=== PATIENT | female | born 1960 | race African-American/Black ===

== ENCOUNTER → 2019-09-19 | Outpatient (CLI) | payer OTHER ==
--- NOTE | 2019-09-19 16:00 | KCIC ---
EXAM: Lumbar spine MRI without contrast. HISTORY: Back pain. Radiculopathy. TECHNIQUE: Multiplanar, multisequence magnetic resonance imaging of the lumbar spine was performed without contrast. COMPARISON: None. FINDINGS: There is mild lumbar dextroscoliosis. There is minimal grade 1 anterolisthesis of L4 and L5, measuring 3 mm. There is no suspicious osseous lesion. There are few tiny osseous hemangiomas. There is no fracture. There is edema within the right L5 pedicle and bilateral L4 pedicles, likely degenerative or due to a stress reaction. The conus terminates at L1. At L1-L2, there is no stenosis. At L2-L3, there is a mild disc bulge. There is mild facet arthropathy. There is no stenosis. At L3-L4, there is a mild disc bulge. There is no stenosis. At L4-L5, there is a mild disc bulge. There is moderate right and mild left facet arthropathy. There is grade 1 anterolisthesis. There is minimal bilateral foraminal stenosis. There is mild central canal stenosis. At L5-S1, there is no stenosis. IMPRESSION: 1. Minimal to mild degenerative change involving the lumbar spine. This is associated with mild central canal stenosis and minimal foraminal stenosis at L4-L5. 2. Mild lumbar dextroscoliosis and minimal grade 1 anterolisthesis of L4 and L5. Electronically signed by: Erika Osorio MD (09/19/2019 3:58 PM) [id number]
== END | disposition home or self-care (01) ==
LOC: KCIC MRI 14:59
PROVIDERS: ATTEND Family Medicine
DX: M47.26 Other spondylosis with radiculopathy, lumbar region (principal); M48.061 Spinal stenosis, lumbar region without neurogenic claudication; M51.16 Intervertebral disc disorders with radiculopathy, lumbar region; M41.86 Other forms of scoliosis, lumbar region; M12.88 Other specific arthropathies, not elsewhere classified, other specified site; D18.09 Hemangioma of other sites
CPT/HCPCS: 72148

== ENCOUNTER → 2020-12-17 | Outpatient (CLI) | payer OTHER ==
--- NOTE | 2020-12-17 17:13 | CARD ---
MR#: [id number] Date of Study: 12/17/2020 Ordering Physician: DAR BLANKENSHIP, Referring Physician: DAR BLANKENSHIP, Tech: Camila Fuentes [facility] APPROVED REPORT EXAM: Two-dimensional and M-mode echocardiogram with Doppler and color Doppler. Other Information Quality : AverageHR: 92bpm Rhythm : NSR INDICATION Palpitations RISK FACTORS Hyperlipidemia 2D DIMENSIONS RVDd2.9 (2.9-3.5cm)Left Atrium(2D)3.3 (1.6-4.0cm) IVSd1.0 (0.7-1.1cm)Aortic Root(2D)2.6 (2.0-3.7cm) LVDd4.6 (3.9-5.9cm)LVOT Diameter1.9 (1.8-2.4cm) PWd0.8 (0.7-1.1cm)LVDs3.4 (2.5-4.0cm) FS (%) 25.4 %SV48.8 ml Aortic Valve AoV Peak Theron.120.6cm/sAoV VTI23.9cm AO Peak GR.5.8mmHgAO Mean GR.3mmHg Mitral Valve MV E Pxnvgkzw78.9cm/sMV DECEL [id number] MV A Evioogzu29.6cm/sE/A Ratio0.9 Pulmonary Valve PV Peak Zgfpxrkg09.2cm/s Tricuspid Valve TR P. Kpgfffzm717ng/sTR Peak Gr.22mmHg Pulmonary Vein S1 Vniqcndm46.8cm/sD2 Uhjlcnwf87.7cm/s LEFT VENTRICLE The left ventricle is normal size. There is normal left ventricular wall thickness. The left ventricu lar systolic function is normal and the ejection fraction is within normal range. LV ejection fractio n of 50-55%. There is normal LV segmental wall motion. The left ventricular diastolic function and fi lling is normal for age. RIGHT VENTRICLE The right ventricle is normal size. There is normal right ventricular wall thickness. The right ventr icular systolic function is normal. ATRIA The left atrium size is normal. The right atrium size is normal. The interatrial septum is intact wit h no evidence for an atrial septal defect or patent foramen ovale as noted on 2-D or Doppler imaging. AORTIC VALVE The aortic valve is normal in structure and function. Doppler and Color Flow revealed no significant aortic regurgitation. There is no significant aortic valvular stenosis. MITRAL VALVE The mitral valve is normal in structure and function. There is no evidence of mitral valve prolapse. There is no mitral valve stenosis. Doppler and Color Flow revealed no mitral valve regurgitation note d. TRICUSPID VALVE The tricuspid valve is normal in structure and function. Doppler and Color Flow revealed trace tricus pid regurgitation. GREAT VESSELS The aortic root is normal in size. The ascending aorta is normal in size. The IVC is normal in size a nd collapses >50% with inspiration. PERICARDIAL EFFUSION There is no evidence of significant pericardial effusion. Critical Notification Critical Value: No <Conclusion> The left ventricle is normal size. The left ventricular systolic function is normal and the ejection fraction is within normal range. LV ejection fraction of 50-55%. Doppler and Color Flow revealed no significant aortic regurgitation. There is no significant aortic valvular stenosis. Doppler and Color Flow revealed no mitral valve regurgitation noted. Doppler and Color Flow revealed trace tricuspid regurgitation. Signed by : Dar Blankenship MD Electronically Approved : 12/17/2020 17:13:22
== END ==
LOC: ECHO 12:42
PROVIDERS: ATTEND Internal Medicine Cardiovascular Disease
DX: R06.00 Dyspnea, unspecified (principal); R01.1 Cardiac murmur, unspecified
CPT/HCPCS: 93306